=== PATIENT | female | born 1995 | race Caucasian/White ===

== ENCOUNTER 2019-11-20 19:31 | Emergency (ER) | payer BC, SELFPAY ==
[2019-11-20 19:34] VITALS: BP 136/76; PULSE 70; RESP 19; TEMP 36.6; O2SAT 100
--- NOTE | 2019-11-20 19:42 | ED.SKABFB ---
HPI - Skin/Abscess/Foreign Bdy General Chief complaint: Skin/Abscess/Foreign Body Stated complaint: BACK SWELLING Time Seen by Provider: 11/20/19 19:41 Source: patient Mode of arrival: ambulatory Limitations: no limitations History of Present Illness HPI narrative: A 24 y/o female presents to the ED with c/o back swelling and redness. Pt states that tonight she noticed that her back began to swell and become red. She has a epidermal cyst on her right temporal lobe and is worried it is related. Pt reports back pain and the right side of her face feels hot, but denies fever and chills. She has no other complaints at this time. complaint: other (Back swelling and redness) Onset (ago): hour(s) (Tonight) Pain Consistency: constant Associated symptoms: other (Back pain, right side of face feels hot) Related Data Allergies Allergy/AdvReac Type Severity Reaction Status Date / Time Penicillins Allergy Unknown RASH Verified 11/20/19 19:39 Review of Systems Review of Systems: All systems reviewed & are unremarkable except as noted in HPI and below Constitutional: Constitutional: Denies chills and Denies fever(s) Musculoskeletal: Musculoskeletal: Reports back pain and Reports other (Back swelling) Integumentary/Breasts: Skin/Breast: Reports erythema (Back) and Reports other (Right side of face feels hot) PMFSH Past Medical History Medical History (Updated 11/20/19 @ 21:23 by Matteo Jorgensen MD) Migraine Surgical History Surgical History (Updated 11/20/19 @ 19:44 by Vikki Shrestha) No pertinent past surgical history Social History Social History (Updated 11/20/19 @ 19:44 by Vikki Shrestha) Years smoked: 1 Smoking status: Former smoker Tobacco type: cigarettes Second hand tobacco smoke exposure: Yes Gender identity (if verbalized by the patient): Female Exam Narrative: Exam Narrative: GENERAL: Well-appearing, well-nourished, and in no acute distress. HEAD: Normocephalic, atraumatic. EYES: PERRLA and EOMI. ENT: Nares clear, Mucous membranes moist. NECK: Supple. Upper back No evidence of rash or erythema CHEST: Clear to auscultation. No respiratory distress. HEART: Regular rate and rhythm. No murmur heard. Normal peripheral pulses. ABDOMEN: Soft, , normal active bowel sounds. EXTREMITIES: Normal range of motion. No edema. SKIN: Warm, dry, no rash. NEURO: No focal deficits. Alert and oriented x3. PSYCH: Normal mood and affect. Course Course Emergency Course: informed her about her lab work ,i reexamined the back it still appear to be normal Vital Signs Vital signs: Vital Signs Temperature 36.6 C 11/20/19 19:34 Pulse Rate 70 11/20/19 19:34 Respiratory Rate 19 11/20/19 19:34 Blood Pressure 136/76 11/20/19 19:34 Pulse Oximetry 100 11/20/19 19:34 Temperature 36.6 C 11/20/19 19:34 Pulse Rate 70 11/20/19 19:34 Respiratory Rate 19 11/20/19 19:34 Blood Pressure 136/76 11/20/19 19:34 Pulse Oximetry 100 11/20/19 19:34 MDM - Skin/Abscess/Foreign Bdy Lab Data Result diagrams: 11/20/19 20:31 11/20/19 20:31 Labs: Lab Results 11/20/19 11/20/19 Range/Units 20:31 20:31 WBC 9.2 (4.5-10.0) K/mm3 RBC 4.60 (4.2-5.4) M/mm3 Hgb 13.1 (12.0-15.0) g/dL Hct 39.2 (37.0-47.0) % MCV 85.2 (80-100) fl MCH 28.5 (26-34) pg MCHC 33.4 (32-36) g/dl RDW 12.0 (11.5-14.5) % Plt Count 365 (150-375) k/mm3 MPV 10.4 (7.4-10.4) fl Immature Gran % (Auto) 0.2 (0-0.5) % Neut % (Auto) 64.3 (45.5-73.1) % Lymph % (Auto) 28.2 (18.3-44.2) % [place] % (Auto) 5.5 (2.6-8.5) % Eos % (Auto) 1.3 (0-4.4) % Baso % (Auto) 0.5 (0.2-1.2) % Lymph # (Auto) 2.60 (0.9-3.2) K/mm3 [place] # (Auto) 0.5 (0.1-0.6) K/mm3 Eos # (Auto) 0.1 (0-0.3) K/mm3 Baso # (Auto) 0.1 (0.0-0.1) K/mm3 Abs Immat Gran (auto) 0.02 (0.00-0.031) K/mm3 Absolute Neuts (auto) 5.9 (1.3-6.7) K/mm3 Absolute Nucleated RBC 0.0
[2019-11-20] MEDS: methylPREDNISolone SOD SUCC 125 MG VIAL IM (19:51)
[2019-11-20 20:40] LABS: Basophils Absolute Auto 0.1 K/mm3 (0.0-0.1); Basophils Percent Auto 0.5 % (0.2-1.2); Eosinophils Absolute Auto 0.1 K/mm3 (0-0.3); Eosinophils Percent Auto 1.3 % (0-4.4); Hematocrit 39.2 % (37.0-47.0); Hemoglobin 13.1 g/dL (12.0-15.0); Immature Granulocyte Absolute 0.02 K/mm3 (0.00-0.031); Immature Granulocyte Percent A 0.2 % (0-0.5); Lymphocytes Percent Auto 28.2 % (18.3-44.2); Mean Corpuscular HGB Conc 33.4 g/dl (32-36); Mean Corpuscular Hemoglobin 28.5 pg (26-34); Mean Corpuscular Volume 85.2 fl (80-100); Mean Platelet Volume 10.4 fl (7.4-10.4); Monocytes Absolute Auto 0.5 K/mm3 (0.1-0.6); Monocytes Percent Auto 5.5 % (2.6-8.5); Neutrophils Absolute Auto 5.9 K/mm3 (1.3-6.7); Neutrophils Percent Auto 64.3 % (45.5-73.1); Platelet Count Result 365 k/mm3 (150-375); White Blood Count 9.2 K/mm3 (4.5-10.0)
[2019-11-20 20:54] LABS: Blood Urea Nitrogen 13 mg/dL (7-17); Calcium 9.1 mg/dL (8.4-10.2); Carbon Dioxide 29 mmol/L (22-30); Chloride 104 mmol/L (98-107); Estimated CRCL calculation 154 ml/min; Estimated Glomerular Filt Rate > 60; Glucose 95 mg/dL (65-105); Potassium 4.2 mmol/L (3.4-5.0); Sodium 137 mmol/L (137-145)
== END 2019-11-20 21:30 | disposition home or self-care (01) ==
PROVIDERS: Emergency Provider Family Medicine
DX: L50.9 Urticaria, unspecified (principal); Z87.891 Personal history of nicotine dependence
CPT/HCPCS: 36415; 80048; 85025; 96372; 99283; J2930

== ENCOUNTER 2019-12-20 15:13 | Emergency (ER) | payer BC, SELFPAY ==
--- NOTE | ~2019-12-20 | US_ITS ---
EXAMINATION: US OB <=14 wk fetus w TV DATE: 12/20/2019 16:35 INDICATION: Vaginal bleeding. Positive test. TECHNIQUE: Real-time transabdominal and transvaginal obstetric ultrasound. FINDINGS: No prior studies for comparison. The uterus measures 10.4 x 6.1 x 8.3 cm. There is an intrauterine gestational sac, with pole id entified. The crown rump length measures 0.76, which correlates with a estimated gestational age of 6 weeks 5 days. heart tones are identified measuring 125 BPM. The ovaries are unremarkable. N o free fluid in the pelvis. IMPRESSION: 1. SL IUP with an EGA of 6 weeks, 5 days (EDC by current ultrasound of 08/09/2020). Reviewed, dictated and finalized at location A. IMPRESSION: 1. SL IUP with an EGA of 6 weeks, 5 days (EDC by current ultrasound of 08/09/20 20).
[2019-12-20 15:27] VITALS: BP 134/78; PULSE 94; RESP 16; TEMP 37.7; O2SAT 99
--- NOTE | 2019-12-20 15:47 | ED.PREGNANCY ---
HPI - General Chief complaint: Vaginal Bleeding Stated complaint: , bleeding Time Seen by Provider: 12/20/19 15:15 Source: patient Mode of arrival: ambulatory Limitations: no limitations History of Present Illness HPI Narrative: Patient is a 24-year-old female who presents to the emergency department with complaint of and vaginal bleeding. Patient took a home test last week which was positive. She started having vaginal bleeding yesterday. Bleeding is heavier today. Patient denies any lower abdominal pain or cramping. Patient has prior history of miscarriage. Her DEWATERER OPERATOR is Dr. Carpio in [place]. She has not yet seen her OB for care. Complaint: vaginal bleeding Onset (ago): day(s) Associated symptoms: nausea, vomiting and vaginal bleeding Date of Last Menstrual Period: 10/30/19 Patient : Yes Related Data : 4 Para: 2 Total number of abortions (spontaneous and elective): 1 Allergies Allergy/AdvReac Type Severity Reaction Status Date / Time Penicillins Allergy Unknown RASH Verified 12/20/19 15:14 Review of Systems Review of Systems: All systems reviewed & are unremarkable except as noted in HPI and below Gastrointestinal: Gastrointestinal: Denies abdominal pain, Reports nausea and Reports vomiting Genitourinary: Genitourinary: Reports abnormal vaginal bleeding PMFSH Past Medical History Medical History Migraine Surgical History Surgical History No pertinent past surgical history Social History Social History Years smoked: 1 Smoking status: Former smoker Tobacco type: cigarettes Second hand tobacco smoke exposure: Yes Gender identity (if verbalized by the patient): Female Exam Const: General: cooperative, no acute distress and alert Nutritional Appearance: obese Orientation/consciousness: patient oriented x3 Limitations: no limitations HENMT: Mouth: Yes lip normal and Yes moist mucous membranes Resp: Effort & Inspection: normal respiratory effort Auscultation: clear to auscultation bilaterally Cardio: Rate: regular rate Rhythm: regular rhythm GI: GI Palp: Yes Soft to palpation and No Tenderness to palpation present (GI) Auscultation: normal bowel sounds Skin: General skin exam: normal color Neuro: General: patient oriented x3 Cognition (Neuro): normal cognition Speech: normal speech Extrem: General: normal to inspection, full ROM and no clubbing, cyanosis or edema Psych: Mental Status: mental status grossly normal Affect: normal affect Attitude: cooperative Course Course Emergency Course: Patient presents with first trimester bleeding. Live intrauterine noted on ultrasound. Patient reports bleeding has significantly improved. Patient is well in appearance and stable for further outpatient evaluation. Advised importance of DEWATERER OPERATOR follow-up. Patient advised risk of possible miscarriage given she is having bleeding and to follow this up with her doctor. Vital Signs Vital signs: Vital Signs Temperature 99.8 F H 12/20/19 15:27 Pulse Rate 94 12/20/19 15:27 Respiratory Rate 16 12/20/19 15:27 Blood Pressure 134/78 12/20/19 15:27 Pulse Oximetry 99 12/20/19 15:27 Temperature 99.8 F H 12/20/19 15:27 Pulse Rate 88 12/20/19 17:24 Respiratory Rate 16 12/20/19 15:27 Blood Pressure 125/77 12/20/19 17:24 Pulse Oximetry 99 12/20/19 15:27 MDM - OB/Uterine Contractions Lab Data Attestation: I reviewed the patient's lab results. Result diagrams: 12/20/19 15:42 Labs: Lab Results 12/20/19 12/20/19 12/20/19 Range/Units 15:32 15:42 15:42 WBC 8.1 (4.5-10.0) K/mm3 RBC 4.65 (4.2-5.4) M/mm3 Hgb 13.1 (12.0-15.0) g/dL Hct 39.3 (37.0-47.0) % MCV 84.5 (80-100) fl MCH 28.2
[2019-12-20 15:51] LABS: Add Urine Microscopic? YES; Appearance Urine Cloudy (Clear); Bacteria Urine Trace /hpf; Bilirubin Urine Negative (Negative); Blood Urine 3+ (Negative); Color Urine Straw (Yellow); Glucose Urine UA Negative (Negative); Ketones Urine Negative (Negative); Leukocyte Esterase Ur 2+ LEU/UL (Negative); Mucus Urine Rare /lpf; Nitrate Urine Negative (Negative); Protein Urine Negative (Negative); Specific Grav Ur 1.006 (1.001-1.035); Squamous Epithelial Cell Urine Many /hpf (Few); Urobilinogen Urine Negative mg/dL (<2.0); WBC Urine 0-3 /hpf
[2019-12-20 15:54] LABS: Basophils Percent Auto 0.2 % (0.2-1.2); Eosinophils Percent Auto 0.5 % (0-4.4); Hematocrit 39.3 % (37.0-47.0); Hemoglobin 13.1 g/dL (12.0-15.0); Immature Granulocyte Absolute 0.04 K/mm3 (0.00-0.031); Immature Granulocyte Percent A 0.5 % (0-0.5); Lymphocytes Absolute Auto 1.47 K/mm3 (0.9-3.2); Lymphocytes Percent Auto 18.1 % (18.3-44.2); Mean Corpuscular HGB Conc 33.3 g/dl (32-36); Mean Corpuscular Hemoglobin 28.2 pg (26-34); Mean Corpuscular Volume 84.5 fl (80-100); Mean Platelet Volume 10.8 fl (7.4-10.4); Monocytes Absolute Auto 0.3 K/mm3 (0.1-0.6); Monocytes Percent Auto 3.9 % (2.6-8.5); Neutrophils Absolute Auto 6.2 K/mm3 (1.3-6.7); Neutrophils Percent Auto 76.8 % (45.5-73.1); Platelet Count Result 333 k/mm3 (150-375); Red Blood Count 4.65 M/mm3 (4.2-5.4); Red Cell Distribution Width 11.9 % (11.5-14.5); White Blood Count 8.1 K/mm3 (4.5-10.0)
--- NOTE | 2019-12-20 16:27 | PC.NURSE ---
1625 pt in ultrasound
[2019-12-20 17:22] VITALS: BP 119/77; BP 128/69; PULSE 82; PULSE 85
[2019-12-20 17:24] VITALS: BP 125/77; PULSE 88
[2019-12-20 18:41] VITALS: BP 149/93; PULSE 66; RESP 20; O2SAT 100
== END 2019-12-20 18:52 | disposition home or self-care (01) ==
PROVIDERS: Emergency Provider Emergency Medicine
DX: O20.0 Threatened abortion (principal); Z87.891 Personal history of nicotine dependence; Z3A.01 Less than 8 weeks gestation of pregnancy
CPT/HCPCS: 36415; 76801; 76817; 81001; 81025; 84702; 85025; 85461; 99284

== ENCOUNTER 2019-12-24 14:00 | Emergency (ER) | payer BC, SELFPAY ==
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
--- NOTE | ~2019-12-24 | US_ITS ---
EXAMINATION: US OB <=14 wk fetus w TV DATE: 12/24/2019 14:53 INDICATION: Low back pain and right lower quadrant pain during first trimester TECHNIQUE: Real-time pelvic transabdominal and transvaginal ultrasound was performed. COMPARISON: None. FINDINGS: The uterus measures 11 x 8 x 6.4 cm. There is an intrauterine gestational sac. There is a 2.5 x 1.5 x 1.1 cm hypoechoic area adjacent to the fundal aspect of the gestational sac. A 1.1 x 0.9 cm hypoechoic area is seen adjacent to the inferior aspect of the gestational sac. A yolk sac is iden tified. heart motion is identified measuring 135 beats per minute (bpm) by M-mode Doppler. The crown rump length measures 1 cm , which correlates with an estimated gestational age of 7 weeks and 1 day(s) (+/-) 5 day(s). The right ovary measures 4 x 3.4 x 2.6 cm. The left ovary measures 2.5 x 2.2 x 2.0 cm. There is no fr ee fluid in the pelvis. IMPRESSION: 1. Live intrauterine with an estimated gestational age of 7 weeks and 1 day(s) (+/-) 5 day( s) and an estimated delivery date of 08/10/2020. 2. Small subchorionic hemorrhages. Reviewed, dictated and finalized at location A. IMPRESSION: 1. Live intrauterine with an estimated gestational age of 7 weeks and 1 day(s) (+/-) 5 day(s) and an estimated delivery date of 08/10/2020. 2. Small subchorionic hemorrhages.
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
[2019-12-24 14:02] VITALS: BP 142/99; PULSE 104; RESP 16; TEMP 36.9; O2SAT 98
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
[2019-12-24 14:37] LABS: Add Urine Microscopic? YES; Appearance Urine Cloudy (Clear); Bacteria Urine Trace /hpf; Bilirubin Urine Negative (Negative); Blood Urine Negative (Negative); Color Urine Yellow (Yellow); Glucose Urine UA Negative (Negative); Ketones Urine Negative (Negative); Leukocyte Esterase Ur 3+ LEU/UL (Negative); Mucus Urine Moderate /lpf; Nitrate Urine Negative (Negative); Protein Urine 2+ mg/dL (Negative); Specific Grav Ur 1.026 (1.001-1.035); Squamous Epithelial Cell Urine Many /hpf (Few); WBC Urine 21-30 /hpf
[2019-12-24 15:04] LABS: Basophils Percent Auto 0.4 % (0.2-1.2); Eosinophils Percent Auto 0.1 % (0-4.4); Hematocrit 38.6 % (37.0-47.0); Hemoglobin 12.7 g/dL (12.0-15.0); Immature Granulocyte Absolute 0.04 K/mm3 (0.00-0.031); Immature Granulocyte Percent A 0.4 % (0-0.5); Lymphocytes Absolute Auto 1.23 K/mm3 (0.9-3.2); Lymphocytes Percent Auto 11.1 % (18.3-44.2); Mean Corpuscular HGB Conc 32.9 g/dl (32-36); Mean Corpuscular Hemoglobin 27.7 pg (26-34); Mean Corpuscular Volume 84.1 fl (80-100); Mean Platelet Volume 10.8 fl (7.4-10.4); Monocytes Absolute Auto 0.5 K/mm3 (0.1-0.6); Monocytes Percent Auto 4.9 % (2.6-8.5); Neutrophils Absolute Auto 9.2 K/mm3 (1.3-6.7); Neutrophils Percent Auto 83.1 % (45.5-73.1); Platelet Count Result 320 k/mm3 (150-375); Red Blood Count 4.59 M/mm3 (4.2-5.4); Red Cell Distribution Width 11.8 % (11.5-14.5); White Blood Count 11.1 K/mm3 (4.5-10.0)
[2019-12-24 15:15] LABS: Blood Urea Nitrogen 8 mg/dL (7-17); Calcium 8.8 mg/dL (8.4-10.2); Carbon Dioxide 25 mmol/L (22-30); Chloride 103 mmol/L (98-107); Estimated CRCL calculation 155 ml/min; Estimated Glomerular Filt Rate > 60; Glucose 106 mg/dL (65-105); Potassium 3.9 mmol/L (3.4-5.0); Sodium 135 mmol/L (137-145)
[2019-12-24] MEDS: ACETAMINOPHEN 500 MG TABLET 1000 MG PO (15:18)
[2019-12-24 15:35] VITALS: BP 137/92; PULSE 96; RESP 17; O2SAT 99
== END 2019-12-24 15:36 | disposition home or self-care (01) ==
PROVIDERS: Emergency Provider Emergency Medicine
DX: O9A.211 Injury, poisoning and certain other consequences of external causes complicating pregnancy, first trimester (principal); S39.012A Strain of muscle, fascia and tendon of lower back, initial encounter; S32.010A Wedge compression fracture of first lumbar vertebra, initial encounter for closed fracture; O26.891 Other specified pregnancy related conditions, first trimester; R82.71 Bacteriuria; Y04.2XXA Assault by strike against or bumped into by another person, initial encounter; Z3A.01 Less than 8 weeks gestation of pregnancy; Z87.891 Personal history of nicotine dependence
CPT/HCPCS: 36415; 72072; 72100; 76801; 76817; 80048; 81001; 85025; 87086; 87088; 99284; A9270

== ENCOUNTER 2020-03-23 22:43 | Emergency (ER) | payer BC, SELFPAY | END 2020-03-23 23:10 | disposition left against medical advice (07) | LOC: CHSED 22:45 | PROVIDERS: Emergency Provider Family Medicine | DX: Z53.8 Procedure and treatment not carried out for other reasons (principal) | CPT/HCPCS: 99199 ==

== ENCOUNTER 2020-03-24 20:57 | Emergency (ER) | payer BC, SELFPAY ==
[2020-03-24 21:16] VITALS: BP 140/88; PULSE 70; RESP 16; TEMP 37.1; O2SAT 98
[2020-03-24] MEDS: KETOROLAC (*BKC) 60 MG/2 ML VIAL IM (21:34)
[2020-03-24] MEDS: ONDANSETRON HCL ODT 4 MG TABLET PO (21:35)
--- NOTE | 2020-03-24 21:39 | ED.DENTAL ---
HPI - Dental/Oral General Chief complaint: Dental/Oral Stated complaint: mouth is swollen shut Source: patient Mode of arrival: ambulatory Limitations: no limitations History of Present Illness HPI Narrative: This is a 24-year-old female that presents with a 3 day history of a dental pain with some left lower molar tenderness with gum inflammation with left submandibular gland tenderness with left jaw pain radiating into her left ear, has taken [id number] ibuprofen with minimal relief, currently no fever chills does have some nausea if no headache no blurry vision no fever chills no shortness of breath. Complaint: tooth pain Location: Tooth # Teeth map: 1. dental pain with swollen surround gum Onset (ago): day(s) Duration: constant Severity: moderate Severity scale (1-10): 7 Relieving factors: NSAIDs Exacerbating factors: chewing, cold, drinking fluids and swallowing Context: history of dental caries Associated symptoms: gum swelling, pain with swallowing and ear pain Related Data Allergies Allergy/AdvReac Type Severity Reaction Status Date / Time Penicillins Allergy Unknown RASH Verified 12/24/19 14:25 Review of Systems Review of Systems: All systems reviewed & are unremarkable except as noted in HPI and below PMFSH Past Medical History Medical History Migraine Surgical History Surgical History No pertinent past surgical history Social History Social History Years smoked: 1 Smoking status: Former smoker Tobacco type: cigarettes Second hand tobacco smoke exposure: Yes Gender identity (if verbalized by the patient): Female Exam Const: General: no acute distress Orientation/consciousness: patient oriented x3 HENMT: Head: normal to inspection Teeth and gingiva: abnormal tooth and associated gingiva Eyes: Conjunctivae: conjunctivae normal Pupils: Equal, round and reactive pupils present Chest: Chest palpation & inspection: normal inspection of the chest Resp: Effort & Inspection: normal respiratory effort Auscultation: clear to auscultation bilaterally Cardio: Rate: regular rate Rhythm: regular rhythm GI: Inspection: distended Skin: General skin exam: normal color Rashes: no rashes Neuro: General: patient oriented x3 and moves all extremities Extrem: General: normal to inspection Psych: Appearance: grossly normal Mental Status: mental status grossly normal Course Course Emergency Course: Patient received IM Toradol and IM clindamycin along with Zofran patient pain and swelling is marginally improved. Vital Signs Vital signs: Vital Signs Temperature 37.1 C 03/24/20 21:16 Pulse Rate 70 03/24/20 21:16 Respiratory Rate 16 03/24/20 21:16 Blood Pressure 140/88 03/24/20 21:16 Pulse Oximetry 98 03/24/20 21:16 Temperature 37.1 C 03/24/20 21:16 Pulse Rate 70 03/24/20 21:16 Respiratory Rate 16 03/24/20 21:16 Blood Pressure 140/88 03/24/20 21:16 Pulse Oximetry 98 03/24/20 21:16 Critical Care Time Critical Care Time Critical Care Time: No Discharge Plan Discharge Clinical Impression: Dental abscess, Dental caries, Toothache Patient Disposition: Home, Self-Care Condition: Stable Instructions: Antibiotic Form, Dental Abscess (ED), Toothache (ED) Additional Instructions: Take medicine as prescribed and follow-up with dentist as soon as possible for further evaluation and treatment. Prescriptions: New tramadol [Ultram] 50 mg tablet 50 mg PO Q6H PRN (Reason: pain) Qty: 20 RF: 0 clindamycin HCl 300 mg capsule 300 mg PO Q6H Qty: 40 RF: 0 ondansetron HCl [Zofran] 4 mg tablet 4 mg PO Q6H PRN (Reason: nausea and vomiting) Qty: 10 RF: 0 No Action cephalexin [Keflex] 500 mg capsule 500 mg PO Q8H 10 Days Qty: 30 RF: 0 acetaminophen
[2020-03-24] MEDS: CLINDAMYCIN HCL 150 MG CAP 600 MG PO (21:44)
[2020-03-24 22:02] VITALS: BP 118/80; PULSE 78; RESP 20; TEMP 36.8; O2SAT 98
== END 2020-03-24 22:03 | disposition home or self-care (01) ==
PROVIDERS: Emergency Provider Emergency Medicine
DX: K04.7 Periapical abscess without sinus (principal); K02.9 Dental caries, unspecified; K08.89 Other specified disorders of teeth and supporting structures
CPT/HCPCS: 96372; 99283; A9270; J1885

== ENCOUNTER 2020-03-27 11:34 | Emergency (ER) | payer BC, SELFPAY ==
[2020-03-27 11:50] VITALS: BP 152/90; PULSE 64; RESP 16; TEMP 36.9; O2SAT 98
--- NOTE | 2020-03-27 12:12 | ED.DENTAL ---
HPI - Dental/Oral General Chief complaint: Dental/Oral Stated complaint: jaw pain Time Seen by Provider: 03/27/20 11:57 Source: patient and RN notes reviewed Mode of arrival: ambulatory Limitations: no limitations History of Present Illness HPI Narrative: Patient presents today complaining of a 5-day history of left lower jaw swelling and dental pain. She was seen 2 days ago in the ER in [place] and placed on clindamycin and tramadol. States the facial swelling has worsened since that time. She is also unable to open her mouth at all. Reports she was running a fever of 101 yesterday. She has been taking prescribed tramadol and currently rates her pain 02/12. MD Complaint: tooth pain Related Data Allergies Allergy/AdvReac Type Severity Reaction Status Date / Time Penicillins Allergy Unknown RASH Verified 03/27/20 12:01 Review of Systems Review of Systems: Narrative: CONSTITUTIONAL: Denies body aches, chills, or sweats. +Fever?resolved EYES: Denies visual changes, redness, or discharge. ENT: Denies rhinorrhea, congestion, sore throat, or otalgia. +Dental pain and facial swelling. +trismus CARDIOVASCULAR: Denies chest pain, palpitations, or edema. RESPIRATORY: Denies cough or dyspnea. GASTROINTESTINAL: Denies abdominal pain, nausea, vomiting, or diarrhea. GENITOURINARY: Denies dysuria or hematuria. SKIN: Denies rash, itching, or wounds. MUSCULOSKELETAL: Denies back pain, joint pain, or myalgia. NEUROLOGIC: Denies headache, numbness, tingling, or weakness. PSYCH: Denies depression or anxiety. PMFSH Social History Social History Years smoked: 1 Smoking status: Former smoker Tobacco type: cigarettes Second hand tobacco smoke exposure: Yes Gender identity (if verbalized by the patient): Female Comments At time of signature, I have reviewed and agree with nursing past medical, surgical, social and family history unless otherwise noted. Please see nursing chart for further information. There is no relevant family history pertinent to the presenting complaint Exam Narrative: Exam Narrative: GENERAL: Well-appearing, well-nourished, and in no acute distress. HEAD: Normocephalic, atraumatic. EYES: EOMI. No redness or drainage. Conjunctivae normal. ENT: Mucous membranes pink and moist. Nares clear. +trismus. Unable to open finger even 1 5th finger breadth. Unable to assess teeth or sublingual tenderness. Left lower jawline is moderately swollen without erythema. Tender to palapation. NECK: Normal AROM. Supple. Left neck is tender to palpation. CHEST: No respiratory distress. Clear to auscultation. HEART: Regular rate and rhythm. No murmur appreciated. Normal peripheral pulses. EXTREMITIES: Normal range of motion. No edema. SKIN: Warm, dry, no rash. Capillary refill normal. Normal skin turgor. NEURO: No focal deficits. Alert and oriented x3. Gait steady. PSYCH: Normal affect. No signs of depression or anxiety. Course Vital Signs Vital signs: Vital Signs Temperature 98.4 F 03/27/20 11:50 Pulse Rate 64 03/27/20 11:50 Respiratory Rate 16 03/27/20 11:50 Blood Pressure 152/90 H 03/27/20 11:50 Pulse Oximetry 98 03/27/20 11:50 Temperature 98.4 F 03/27/20 11:50 Pulse Rate 64 03/27/20 11:50 Respiratory Rate 16 03/27/20 11:50 Blood Pressure 152/90 H 03/27/20 11:50 Pulse Oximetry 98 03/27/20 11:50 Reviewed. Pt has been instructed to follow up with her PCP regarding her elevated blood pressure today. Transfer Transfered to: [facility] Transportation: Other (Private vehicle) Transfer rationale: Facial swelling, trismus, rule out Aníbal's angina. Accepting physician: ER nurse refuses to give name of accepting physician. MDM - Dental/Oral Differential Diagnosis Differential diagnosis: Likely gingival abscess, dental caries, toothache, dental abscess, fracture of tooth and other (Aníbal's angina) Critical Care Time
== END 2020-03-27 12:13 | disposition short-term general hospital (02) ==
PROVIDERS: Emergency Provider Nurse Practitioner
DX: K04.7 Periapical abscess without sinus (principal); R25.2 Cramp and spasm; Z87.891 Personal history of nicotine dependence
CPT/HCPCS: 99212; G0463

== ENCOUNTER 2020-11-18 12:27 | Emergency (ER) | payer BC, SELFPAY ==
[2020-11-18 12:35] VITALS: BP 117/66; PULSE 63; RESP 18; TEMP 36.7; O2SAT 99
--- NOTE | 2020-11-18 12:58 | ED.EYEPROB ---
HPI - Eye Problem General Chief complaint: Eye Problems Stated complaint: left eye swollen Time Seen by Provider: 11/18/20 12:47 Source: patient and RN notes reviewed Mode of arrival: ambulatory Limitations: no limitations History of Present Illness HPI Narrative: Patient presents today complaining of swelling and pain to the left lower eyelid since last night. States it has also worsened throughout the day today. Denies drainage, itching, injury, foreign body sensation, pain to the eyeball, or vision changes. Currently rates the pain 5/10 and has been taking Tylenol and using warm and cold compresses without much relief. Related Data Allergies Allergy/AdvReac Type Severity Reaction Status Date / Time Penicillins Allergy Unknown RASH Verified 11/18/20 12:34 Review of Systems Review of Systems: Narrative: CONSTITUTIONAL: Denies body aches, fever, chills, or sweats. EYES: Denies visual changes, redness, or discharge.+ Left lower eyelid swelling and pain ENT: Denies rhinorrhea, congestion, sore throat, or otalgia. CARDIOVASCULAR: Denies chest pain, palpitations, or edema. RESPIRATORY: Denies cough or dyspnea. GASTROINTESTINAL: Denies abdominal pain, nausea, vomiting, or diarrhea. GENITOURINARY: Denies dysuria or hematuria. SKIN: Denies rash, itching, or wounds. MUSCULOSKELETAL: Denies back pain, joint pain, or myalgia. NEUROLOGIC: Denies headache, numbness, tingling, or weakness. PSYCH: Denies depression or anxiety. FOR[facility]LY [facility] Past Medical History Medical History (Updated 11/19/20 @ 08:03 by Stacey Watson, [facility], ) Migraine Migraine Surgical History Surgical History No pertinent past surgical history Social History Social History Years smoked: 1 Smoking status: Former smoker Tobacco type: cigarettes Second hand tobacco smoke exposure: Yes Gender identity (if verbalized by the patient): Female Comments At time of signature, I have reviewed and agree with nursing past medical, surgical, social and family history unless otherwise noted. Please see nursing chart for further information. There is no relevant family history pertinent to the presenting complaint Exam Narrative: Exam Narrative: GENERAL: Well-appearing, well-nourished, and in no acute distress. HEAD: Normocephalic, atraumatic. EYES: EOMI. PERRL. Left lower lash line is moderately edematous and mildly erythematous. No active drainage. Conjunctiva is normal. Mildly tender to palpation. Upper eyelid is normal. Right eye normal. ENT: Mucous membranes pink and moist. NECK: Normal AROM. CHEST: No respiratory distress. EXTREMITIES: Normal range of motion. No edema. SKIN: Warm, dry, no rash. Capillary refill normal. Normal skin turgor. NEURO: No focal deficits. Alert and oriented x3. Gait steady. PSYCH: Normal affect. No signs of depression or anxiety. Course Vital Signs Vital signs: Vital Signs Temperature 98.0 F 11/18/20 12:35 Pulse Rate 63 11/18/20 12:35 Respiratory Rate 18 11/18/20 12:35 Blood Pressure 117/66 11/18/20 12:35 Pulse Oximetry 99 11/18/20 12:35 Temperature 98.0 F 11/18/20 12:35 Pulse Rate 63 11/18/20 12:35 Respiratory Rate 18 11/18/20 12:35 Blood Pressure 117/66 11/18/20 12:35 Pulse Oximetry 99 11/18/20 12:35 Reviewed MDM - Eye Problem Differential Diagnosis Differential diagnosis: Likely corneal abrasion, conjunctivitis, periorbital cellulitis and other (Orbital cellulitis, blepharitis, stye) Critical Care Time Critical Care Time Critical Care Time: No Discharge Plan Discharge Clinical Impression: Blepharitis Patient Disposition: Home, Self-Care Condition: Stable Instructions: Antibiotic Form, Blepharitis (ED) Additional Instructions: Please use the eye ointment and take the doxycycline as prescribed. Take anti-inflammatory such as Aleve or ibupro
== END 2020-11-18 13:10 | disposition home or self-care (01) ==
PROVIDERS: Emergency Provider Nurse Practitioner
DX: H01.005 Unspecified blepharitis left lower eyelid (principal); Z87.891 Personal history of nicotine dependence
CPT/HCPCS: 99213; G0463

== ENCOUNTER 2020-12-22 15:45 | Emergency (ER) | payer BC, SELFPAY ==
--- NOTE | ~2020-12-22 | XR_ITS ---
EXAMINATION: XR chest 2V 12/22/2020 16:38 INDICATION: Productive cough and wheezing PROCEDURE: 2 view chest COMPARISON: No prior studies for comparison. FINDINGS: The lungs are clear. The cardiomediastinal silhouette is within normal limits. There are no pleural effusions. There is no pneumothorax suspected. IMPRESSION: 1: NO ACUTE CARDIOPULMONARY DISEASE. Reviewed, dictated and finalized at location A.
[2020-12-22 15:48] VITALS: BP 144/78; PULSE 105; RESP 16; TEMP 37.2; O2SAT 99
--- NOTE | 2020-12-22 16:29 | ED.URI ---
HPI - URI/Sore Throat General Chief Complaint: Upper Respiratory Infection Stated Complaint: congestion throat pain cough Time Seen by Provider: 12/22/20 16:29 Source: patient Mode of arrival: ambulatory Limitations: no limitations History of Present Illness HPI Narrative: 25-year-old presents to the [facility] with complaints of 3 days of cough, congestion, sinus drainage. Productive cough. Related Data Allergies Allergy/AdvReac Type Severity Reaction Status Date / Time Penicillins Allergy Unknown RASH Verified 12/22/20 16:31 Review of Systems Review of Systems: Narrative: CONSTITUTIONAL: Denies fever, chills, or sweats. EYES: Denies visual changes, redness, or discharge. ENT: Reports rhinorrhea, congestion, sore throat, or otalgia. CARDIOVASCULAR: Denies chest pain, palpitations, or edema. Chest wall tightness only with coughing RESPIRATORY: Denies cough or dyspnea. GASTROINTESTINAL: Denies abdominal pain, nausea, vomiting, or diarrhea. SKIN: Denies rash or itching. MUSCULOSKELETAL: Denies back pain, joint pain, or myalgia. NEUROLOGIC: Denies headache, numbness, or weakness. PSYCHIATRIC: Denies anxiety or depression. All other systems reviewed are negative, except as documented in HPI. PMFSH Past Medical History Medical History Migraine Migraine Surgical History Surgical History No pertinent past surgical history Social History Social History Years smoked: 1 Smoking status: Former smoker Tobacco type: cigarettes Second hand tobacco smoke exposure: Yes Gender identity (if verbalized by the patient): Female Comments At the time of my signature, I reviewed and agree with the nursing past medical, surgical, social, and family history. There is no relevant family history pertinent to the patient complaint. Exam Narrative: Exam Narrative: GENERAL: This is a well-nourished, well-developed patient, in no apparent distress. Morbidly obese HEAD: normocephalic, atraumatic. EYES: PERRL. Sclera clear/white. Vision is grossly intact. EARS: External ears normal, auditory canals clear and without drainage, TMs normal without perforation. Hearing grossly intact. NOSE: External nose normal with nasal discharge, nares with redness. THROAT: Mucous membranes moist, posterior pharynx clear. NECK: Neck supple, non-tender without lymphadenopathy, masses or thyromegaly. CARDIOVASCULAR: Regular rate and rhythm without murmurs, gallops, or rubs. RESPIRATORY: Clear but diminished to auscultation. Breath sounds equal bilaterally. No wheezes, rales, or rhonchi. GASTROINTESTINAL: Abdomen soft, non-tender, nondistended. SKIN: warm, Dry, intact with no suspicious lesions or rash, good texture and turgor. NEURO: awake, alert, and oriented to person, place and time. There were no obvious focal neurologic abnormalities. EXTREMITIES: No joint tenderness, effusion, or edema noted. BACK: Nontender without deformity. Course Course Emergency Course: Reviewed Vital Signs Vital signs: Vital Signs Temperature 98.9 F 12/22/20 15:48 Pulse Rate 105 H 12/22/20 15:48 Respiratory Rate 16 12/22/20 15:48 Blood Pressure 144/78 H 12/22/20 15:48 Pulse Oximetry 99 12/22/20 15:48 Temperature 98.9 F 12/22/20 15:48 Pulse Rate 100 12/22/20 17:10 Respiratory Rate 20 12/22/20 17:10 Blood Pressure 144/78 H 12/22/20 15:48 Pulse Oximetry 99 12/22/20 17:10 Reviewed MDM - URI/Sore Throat MDM Narrative Medical decision making narrative: Discharge instructions reviewed with patient, as well as provided in writing per nursing staff. The instructions also include specific and strict return/GO TO THE ER as well as f/u information. All questions have been answered, and the patient deny any further questions with discharge and discharge plan. Differential Diagnosis Differential di
[2020-12-22] MEDS: ALBUTEROL SULFATE NEB 2.5 MG/3 ML INH INHALATION (16:46)
[2020-12-22 17:10] VITALS: PULSE 100; RESP 20; O2SAT 99
[2020-12-23 20:31] LABS: SARS-CoV-2 RNA PCR Negative
== END 2020-12-22 17:10 | disposition home or self-care (01) ==
PROVIDERS: Emergency Provider Nurse Practitioner
DX: J40 Bronchitis, not specified as acute or chronic (principal); J06.9 Acute upper respiratory infection, unspecified; Z20.822 Contact with and (suspected) exposure to COVID-19; Z87.891 Personal history of nicotine dependence
CPT/HCPCS: 71046; 87081; 87426; 87804; 87880; 94640; 99213; C9803; G0463; U0003; U0005

== ENCOUNTER 2023-08-02 11:12 | Emergency (ER) | payer BC, SELFPAY ==
[2023-08-02 11:18] VITALS: BP 125/83; PULSE 74; RESP 20; TEMP 37.1; O2SAT 97
--- NOTE | 2023-08-02 11:59 | ED.URI ---
HPI - URI/Sore Throat General Chief Complaint: Upper Respiratory Infection Stated Complaint: Cough/Chest Congestion Time Seen by Provider: 08/02/23 11:59 Source: patient and RN notes reviewed History of Present Illness HPI Narrative: 27 yo F presents to urgent care with complaints of a cough x 2 days. Pt states her chest hurts when she coughs and she feels SOB from coughing so much. Reports some congestion as well. Denies any fevers, chills, N/V/D, sore throat, or other symptoms. Related Data Allergies Allergy/AdvReac Type Severity Reaction Status Date / Time Penicillins Allergy Unknown RASH Verified 08/02/23 11:40 Review of Systems Review of Systems: CONSTITUTIONAL: Denies fever, chills, or sweats. EYES: Denies visual changes, redness, or discharge. ENT: Denies otalgia and sore throat CARDIOVASCULAR: Denies palpitations, or edema. GASTROINTESTINAL: Denies abdominal pain, nausea, vomiting, or diarrhea. GENITOURINARY: Denies dysuria or hematuria. SKIN: Denies rash or itching. MUSCULOSKELETAL: Denies back pain, joint pain, or myalgia. NEUROLOGIC: Denies headache, numbness, or weakness. Pertinent positives per HPI. [facility] Past Medical History Medical History Migraine Migraine Surgical History Surgical History No pertinent past surgical history Social History Social History Years smoked: 1 Smoking status: Former smoker Tobacco type: cigarettes Second hand tobacco smoke exposure: Yes Gender identity (if verbalized by the patient): Female Comments At the time of my signature, I reviewed and agree with the nursing past medical, surgical, social, and family history. There is no relevant family history pertinent to the patient complaint. Exam Narrative: GENERAL: This is a well-nourished, well-developed patient, in no apparent distress. HEAD: normocephalic, atraumatic. EYES: Sclera clear/white. Vision is grossly intact. EARS: External ears normal, auditory canals clear and without drainage, TMs normal without perforation. Hearing grossly intact. NOSE: External nose normal with no obvious nasal discharge, nares without redness, no rhinorrhea. THROAT: Mucous membranes moist, posterior pharynx clear. NECK: Neck supple, non-tender without lymphadenopathy, masses or thyromegaly. CARDIOVASCULAR: Regular rate and rhythm without murmurs, gallops, or rubs. RESPIRATORY: Clear to auscultation. Breath sounds equal bilaterally. No wheezes, rales, or rhonchi. GASTROINTESTINAL: Abdomen soft, non-tender, nondistended. Bowel sounds are active. No hepato-splenomegaly, or palpable masses. No guarding. SKIN: warm, intact with no suspicious lesions or rash, good texture and turgor. NEURO: awake, alert, and oriented to person, place and time. There were no obvious focal neurologic abnormalities. EXTREMITIES: No clubbing, cyanosis, or edema. No joint tenderness, effusion, or edema noted. BACK: Nontender without deformity or crepitus. No flank tenderness. Course Course Level of Care: Express Care Visit Vital Signs Vital signs: Vital Signs Temperature 98.8 F 08/02/23 11:18 Pulse Rate 74 08/02/23 11:18 Respiratory Rate 20 08/02/23 11:18 Blood Pressure 125/83 08/02/23 11:18 Pulse Oximetry 97 08/02/23 11:18 Oxygen Delivery Room Air 08/02/23 11:18 Temperature 98.8 F 08/02/23 11:18 Pulse Rate 74 08/02/23 11:18 Respiratory Rate 20 08/02/23 11:18 Blood Pressure 125/83 08/02/23 11:18 Pulse Oximetry 97 08/02/23 11:18 Oxygen Delivery Room Air 08/02/23 11:18 Reviewed MDM - URI/Sore Throat MDM Narrative Medical decision making narrative: May use the inhaler every 4-6 hours as needed for coughing. Increase fluids at home. Avoid any and all smoke. May use a humidifier in the bedroom. Increase your Vitamin C. Follow-up with per
== END 2023-08-02 12:25 | disposition home or self-care (01) ==
PROVIDERS: Emergency Provider Nurse Practitioner Family
DX: B34.9 Viral infection, unspecified (principal); Z87.891 Personal history of nicotine dependence
CPT/HCPCS: 99213; G0463

== ENCOUNTER 2024-02-11 15:54 | Emergency (ER) | payer BC, SELFPAY ==
[2024-02-11 16:01] VITALS: BP 135/80; PULSE 67; RESP 20; TEMP 37; O2SAT 99
--- NOTE | 2024-02-11 16:13 | ED.GENADULT ---
HPI - General Adult General Chief complaint: Upper Respiratory Infection Stated complaint: Cough/Sore Throat Time Seen by Provider: 02/11/24 16:14 Source: patient, RN notes reviewed and old records reviewed Mode of arrival: ambulatory Limitations: no limitations History of Present Illness HPI narrative: 28-year-old female to Express Care for complaint of nonproductive cough, postnasal drainage, nasal congestion and sore throat for 3 days. Patient denies fever, nausea, vomiting, shortness of breath, chest pain. Patient able to tolerate fluids by mouth. Respirations even and nonlabored. No acute distress noted in exam room. Related Data Allergies Allergy/AdvReac Type Severity Reaction Status Date / Time Penicillins Allergy Unknown RASH Verified 02/11/24 16:08 Review of Systems Review of Systems: All systems reviewed & are unremarkable except as noted in HPI and below Constitutional: Constitutional: Reports no additional constitutional complaints Eyes: Eyes: Reports no additional eye complaints ENT: Reports as per HPI, Reports nasal congestion, Reports post nasal drip and Reports sinus pressure Cardiovascular: Cardiovascular: Reports no additional cardiovascular complaints, Denies chest pain and Denies dyspnea Respiratory: Respiratory: Reports no additional respiratory complaints, Reports cough and Denies dyspnea Musculoskeletal: Musculoskeletal: Reports no additional musculoskeletal complaints Neurologic: Reports system reviewed and no additional complaints, except as documented Psychiatric: Psychiatric: Reports no additional psychiatric complaints PMFSH Past Medical History Medical History Migraine Migraine Surgical History Surgical History No pertinent past surgical history Social History Social History Years smoked: 1 Smoking status: Former smoker Tobacco type: cigarettes Second hand tobacco smoke exposure: Yes Gender identity (if verbalized by the patient): Female Comments At the time of my signature, I reviewed and agree with the nursing past medical, surgical, social, and family history. There is no relevant family history pertinent to the patient complaint. Exam Const: General: cooperative, healthy appearing, comfortable, no acute distress, alert and well nourished Nutritional Appearance: well nourished Orientation/consciousness: patient oriented x3 Limitations: no limitations HENMT: Head: normal to inspection Ears: external ears normal and TM abnormal bulging on the left, erythematous on the left and with fluid behind the TM bilateral Face/Nose/Sinus: Normal external nose present, Normal nares present, normal facial exam, No erythema and No edema Face and sinus: normal facial exam, no erythema and no edema Mouth: Yes Normal oral and palatal mucosa present Throat: postnasal drainage Eyes: General: appearance normal, both eyes and all related structures Neck: Neck: normal visual inspection, full ROM and no meningeal signs Lymphatic: no lymphadenopathy noted and no lymphedema noted Chest: Chest palpation & inspection: normal inspection of the chest Resp: Effort & Inspection: normal respiratory effort and able to speak in complete sentences Auscultation: clear to auscultation bilaterally Cardio: Jugular venous distension: no JVD Rate: regular rate Rhythm: regular rhythm Back/Spine/Pelvis: Cervical Spine: cervical ROM normal Skin: General skin exam: normal color, no rashes or lesions noted and turgor normal Neuro: General: patient oriented x3, gait normal, moves all extremities and no meningeal signs Speech: normal speech Gait exam (Neuro): Normal gait present Extrem: General: normal to inspection, full ROM and capillary refill normal Psych: Appearance: grossly normal and well kempt Course Cou
== END 2024-02-11 16:38 | disposition home or self-care (01) ==
PROVIDERS: Emergency Provider Nurse Practitioner Family
DX: H66.92 Otitis media, unspecified, left ear (principal); J06.9 Acute upper respiratory infection, unspecified; Z87.891 Personal history of nicotine dependence
CPT/HCPCS: 99213; G0463

== ENCOUNTER 2024-05-29 11:34 | Emergency (ER) | payer BC, SELFPAY ==
[2024-05-29 11:36] VITALS: BP 146/75; PULSE 84; RESP 16; TEMP 36.6; O2SAT 99
--- NOTE | 2024-05-29 12:48 | ED.SKABFB ---
HPI - Skin/Abscess/Foreign Bdy General Chief complaint: Skin/Abscess/Foreign Body Stated complaint: RASH Time Seen by Provider: 05/29/24 12:06 History of Present Illness HPI narrative: 28-year-old female not past medical history presenting to the emergency department chief complaint urticaria. 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 Spares the palms and soles and the abdomen and trunk to the most part. No facial or head involvement. She is taking 2 Benadryl at home without any improvement her symptoms and prompted her to seek evaluation today. Does not have a primary care provider. No systemic features such as fever, chills, nausea vomiting, chest pain, shortness a breath, weakness, fatigue. Rash is not painful. Has never experienced some of this in the past. No recent steroids or antibiotic use. No recent exposures to other sick contacts or anyone else with similar rash. No new laundry detergents or chemical exposures. No other change in her life aside from her new job. Related Data Allergies Allergy/AdvReac Type Severity Reaction Status Date / Time Penicillins Allergy Unknown RASH Verified 02/11/24 16:08 Review of Systems Review of Systems: As reviewed above in HPI [facility] Past Medical History Medical History Migraine Migraine Surgical History Surgical History No pertinent past surgical history Social History Social History Years smoked: 1 Smoking status: Former smoker Tobacco type: cigarettes Second hand tobacco smoke exposure: Yes Gender identity (if verbalized by the patient): Female Exam Narrative: GENERAL: [Well-appearing, well-nourished, and in no acute distress.] HEAD: [Normocephalic, atraumatic.] EYES: [PERRLA and EOMI.] ENT: Nares clear, no rhinorrhea or epistaxis. Mucous membranes moist. NECK: Supple. CHEST: [Clear to auscultation. No respiratory distress.] HEART: [Regular rate and rhythm]. No murmur heard. [Normal peripheral pulses.] ABDOMEN: [Soft, nondistended], [nontender], [No rigidity or guarding] EXTREMITIES: Normal range of motion. [No edema.] SKIN: Urticarial rash involving bilateral upper lower extremities, macular papular in nature, nontender that touch, not warm to the touch. No fluctuance or significant erythema. Spares the palms soles, scalp and face. NEURO: [No focal deficits]. Alert and oriented [x3.] PSYCH: [Normal mood and affect.] Course Vital Signs Vital signs: Vital Signs Temperature 36.6 C 05/29/24 11:36 Pulse Rate 84 05/29/24 11:36 Respiratory Rate 16 05/29/24 11:36 Blood Pressure 146/75 H 05/29/24 11:36 Pulse Oximetry 99 05/29/24 11:36 Temperature 36.6 C 05/29/24 11:36 Pulse Rate 84 05/29/24 11:36 Respiratory Rate 16 05/29/24 11:36 Blood Pressure 146/75 H 05/29/24 11:36 Pulse Oximetry 99 05/29/24 11:36 MDM - Skin/Abscess/Foreign Bdy MDM Narrative Medical decision making narrative: 28-year-old female presenting for and on her care and her bilateral upper and lower extremities. Try Benadryl at home without any improvement. 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 No new c clothing, detergents, sick contacts or other recent illnesses. Examination shows maculopapular urticarial rash in the arms and legs, spares the palms and soles, no forehead or facial involvement. No trunk or abdomen involvement. Symmetric bilaterally. Will treat this as a allergic reaction. She was given 60 mg of p.o. prednisone, 20 mg Pepcid, 25 mg of p.o. Benadryl as her last dose was sometime last night. Patient be sent home with a prednisone dose for the next several days and given retu
[2024-05-29] MEDS: diphenhydrAMINE HCl CAP 25 MG CAPSULE PO (12:54)
[2024-05-29] MEDS: predniSONE 20 MG TABLET 60 MG PO (12:54)
[2024-05-29] MEDS: FAMOTIDINE 20 MG TABLET PO (12:54)
[2024-05-29 13:02] VITALS: BP 132/85; PULSE 60; RESP 18; TEMP 36.6; O2SAT 98
== END 2024-05-29 13:05 | disposition home or self-care (01) ==
PROVIDERS: Emergency Provider Student in an Organized Health Care Education/Training Program
DX: L50.0 Allergic urticaria (principal); Z87.891 Personal history of nicotine dependence
CPT/HCPCS: 99283; A9270; J7512

== ENCOUNTER 2025-04-17 12:20 | Emergency (ER) | payer BC, SELFPAY ==
--- OUTSIDE RECORDS SUMMARY | 2025-04-17 12:23 | XMS_ITS | Clinical Summary ---
Author Organization [facility] Address [address] [place] [address] Phone Care Team Providers Care Beverage Host Name Role Phone Provider, None Primary Care Provider Unavailabl e Allergies Active Allergy Reactions Criticality Noted Date Comments Penicillins Hives 10/05/2015 Medications azithromycin (ZITHROMAX) 250 MG Tablet 2 tab(s) daily for 1 day, then 1 tab(s) daily for days 2-5. 6 Tab 7 Active albuterol 108 (90 Base) MCG/ACT Aerosol Solution take 2 Puffs by inhalation every 4 hours as needed for Cough. 1 Inhaler 8 Active HYDROcodone-marian taminophen (NORCO) 5-325 MG Tablet Take 1 Tab by mouth every 6 hours as needed for Moderate or more severe pain or Severe pain. 15 Tab 1 Active ibuprofen (MOTRIN) 800 MG Tablet Take 1 Tab by mouth every 8 hours. 30 Tab 1 Active albuterol 108 (90 Base) MCG/ACT Aerosol Solution take 2 Puffs by inhalation every 6 hours as needed for Wheezing. 1 Inhaler 1 Active predniSONE (DELTASONE) 50 MG Tablet Take 1 Tablet by mouth daily. 4 Tablet 1 Active Active Problems Problem Noted Date Diagnosed Date Term delivered 05/02/2016 Immunizations Immunization Administration Dates Next Due TDAP Vaccine 05/03/2016 Family History Medical History Relation Name Comments Diabetes Mother Relation Name Status Comments Mother Social History Tobacco Use Types Packs/Day Years Used Date Smoking Tobacco: Never Smokeless Tobacco: Never Alcohol Use Standard Drinks/Week Comments No 0 (1 standard drink = 0.6 oz pur e alcohol) seldom Sexually Active Control Partners Comments Yes Male Comments No Sex and Gender Information Value Date Recorded Sex Assigned at Not on file Legal Sex Female 7:37 PM CDT Gender Identity Not on file Sexual Orientation Not on file Last Filed Vital Signs Vital Sign Reading Time Taken Comments Blood Pressure 126/77 03/14/2022 3:38 PM CDT Pulse 84 03/14/2022 3:38 PM CDT Temperature 36.8 C (98.2 F) 03/14/2022 3:38 PM CDT Respiratory Rate 20 03/14/2022 3:38 PM CDT Oxygen Saturation 98% 03/14/2022 3:38 PM CDT Inhaled Oxygen Concentration - - Weight 108.9 kg (240 lb) 03/14/2022 3:38 PM CDT Height 162.6 cm (5' 4) 03/14/2022 3:38 PM CDT Body Mass Index 41.2 03/14/2022 3:38 PM CDT Plan of Treatment Health Maintenance Due Date Last Done Comments Hepatitis C Virus (HCV) Screening 1994 Pap Smear 2015 Human Papillomavirus (HPV) Immunization (1 - 3-dose SCDM series) 2021 SARS-COV-2 Immunization ( season) 2024 Cervical Cancer Screening (CCS) 2024 HPV/Cotest 2024 Influenza Immunization (#1) 2025 Respiratory Syncytial Virus (RSV) Immunization (Adult) (1 - 1-dose 75+ series) 2069 Hepatitis B Immunization Completed 995, 1994, 1994 DTaP/Tdap/Td Immunization Discontinued 2015, 09/05/2014, 01/03/1996, Additional history exists Meningococcal Immunization (ACWY) Aged Out No longer eligible based on patient's age to complete this topic Pneumococcal Immunization Combined Aged Out No longer eligible based on patient's age to complete this topic Rotavirus Immunization Aged Out No lo nger eligible based on patient's age to complete this topic Insurance MEDICAID BL[place]OSS [place] Advance Directives * Full Code (Latest Code Status on File) Date Activated Date Inactivated Comments 05/02/2016 3:40 PM 05/04/2016 3:45 PM CPR-Full Zac atment: FULL ARREST: Attempt Resuscitation/CPR wit intubation and mechanical ventilation. PRE-ARREST: Use entire range of life support measures to stabilize the patient. * Full Code Date Activated Date Inactivated Comments 01/18/2016 6:12 AM 01/18/2016 9:51 AM CPR-Full Zac atment: FULL ARREST: Attempt Resuscitation/CPR wit intubation and mechanical ventilation. PRE-ARREST: Use entire range of life support measures to stabilize the patient. * Full Code Date Activated Date Inactivated Comments 01/08/2016 1:29 PM 01/08/2016 4:50 PM CPR-Full Treat ment: FULL ARREST: Attempt Resuscitation/CPR wit intubation and mechanical ventilation. PRE-ARREST: Use entire range of life support measures to stabilize the patient. Care Teams Beverage Host Relationship Specialty Start Date End Date Provider, None [place] PCP - General 05/14/19
[2025-04-17 12:24] VITALS: BP 150/82; PULSE 70; RESP 18; TEMP 36.7; O2SAT 99
--- NOTE | 2025-04-17 12:43 | ED.FEMALEGU ---
HPI - Female Genitourinary General Chief complaint: Vaginal Bleeding Stated complaint: Heavy Menstration Time Seen by Provider: 04/17/25 12:30 Source: patient Mode of arrival: ambulatory Limitations: no limitations History of Present Illness HPI Narrative: Priya is a 29-year-old female patient presenting to the clinic today with complaints of heavy menstruation with abdominal cramping x2 days. She reports she is having a heavy menstrual cycle with lots of clots passing. Has not had a menstrual period in 3 months. States she has been having to change her vaginal pad every hour due to the amount of blood she is passing. Took at home test and it was negative. Denies any weakness, dizziness, shortness of breath, or chest pain. Related Data Allergies Allergy/AdvReac Type Severity Reaction Status Date / Time Penicillins Allergy Unknown RASH Verified 04/17/25 12:25 [facility] Past Medical History Medical History Migraine Migraine Surgical History Surgical History No pertinent past surgical history Social History Social History Years smoked: 1 Smoking status: Former smoker Tobacco type: cigarettes Second hand tobacco smoke exposure: Yes Gender identity (if verbalized by the patient): Female Comments At the time of my signature, I reviewed and agree with the nursing past medical, surgical, social, and family history. There is no relevant family history pertinent to the patient complaint. Exam Narrative: General: Well-developed, morbidly obese, in no apparent distress Head: Normocephalic, atraumatic. Cardio: Regular rate and rhythm, s1 and s2 normal, no murmur appreciated. Resp: Clear to auscultation bilaterally, no rhonchi, rales, wheezing or rubs. Abdomen: Soft, pliable, bowel sounds present in all quadrants, non-tender to palpation, no CVAT tenderness. : Deferred. Course Course Emergency Course: Portions of this record may have been created with voice recognition software. Level of Care: Express Care Visit Vital Signs Vital signs: Vital Signs Temperature 36.7 C 04/17/25 12:24 Pulse Rate 70 04/17/25 12:24 Respiratory Rate 18 04/17/25 12:24 Blood Pressure 150/82 H 04/17/25 12:24 Pulse Oximetry 99 04/17/25 12:24 Oxygen Delivery Room Air 04/17/25 12:24 Temperature 36.7 C 04/17/25 12:24 Pulse Rate 70 04/17/25 12:24 Respiratory Rate 18 04/17/25 12:24 Blood Pressure 150/82 H 04/17/25 12:24 Pulse Oximetry 99 04/17/25 12:24 Oxygen Delivery Room Air 04/17/25 12:24 Vital signs reviewed MDM - Female Genitourinary MDM Narrative Medical decision making narrative: At the time of visit patient is resting comfortably on the exam table. Patient appears to be nontoxic. Complaints of heavy menstruation with abdominal cramping x2 days. She reports she is having a heavy menstrual cycle with lots of clots passing. Has not had a menstrual period in 3 months. States she has been having to change her vaginal pad every hour due to the amount of blood she is passing. Took at home test and it was negative. Denies any weakness, dizziness, shortness of breath, or chest pain. Recommend transfer to the ER for further evaluation and patient agrees to go to the emergency room. Patient would like to be transfer to [facility] in [place], [place]. Report called to Silv[facility]- and Dr. Friend accepts patient for transfer. Patient VS stable. May be transferred via private car. Plan: Patient having heavy menstrual bleeding. Patient transferred to Hospital ER for further evaluation. Dr. Friend accepts at [place], [place]. Differential Diagnosis Differential diagnosis: Likely dysmenorrhea and other (, miscarriage, uterine fibroids, endometriosis, cervical cancer, uterine cancer) Discharge Plan Discharge Clinical Impression: Menometrorrhagia Patient Disposition: Acute Care Hospital Condition: Stable Patient Language: [place] Follow-up/Referrals: PHYSICIAN NOT ON STAFF,NONSTAFF [Primary Care Provider] - Time of Disposition: 12:40 Quality NIHSS Nursing Documentation ED NIHSS nursing documentation: reviewed/agree
== END 2025-04-17 12:50 | disposition short-term general hospital (02) ==
LOC: EXPBETH 12:23
PROVIDERS: Emergency Provider Nurse Practitioner Family
DX: N92.1 Excessive and frequent menstruation with irregular cycle (principal); Z87.891 Personal history of nicotine dependence
CPT/HCPCS: 99212; G0463